=== PATIENT | female | born 2000 | race Caucasian/White ===

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

== ENCOUNTER 2018-09-19 17:38 | Emergency (ER) | payer MEDICAID ==
--- NOTE | 2018-09-19 18:17 | EDPHY ---
General Time Seen by Provider: 09/19/18 18:16 Narrative: CLINICAL IMPRESSION: Insect bites, cellulitis ASSESSMENT/PLAN: Patient is a 18-year-old female with a significant history of asthma who presents to the ED with a insect bites that have been present and escalating since September 07. The patient is well-appearing, she is in no acute distress. Physical examination reveals multiple insect bites on forearms and lower extremities, right knee with associated cellulitis. History of physical examination is consistent with insect bites and cellulitis. There were no clinical findings to suggest SJS/TENS, varicella virus, abscess , necrotizing skin infection, deep space infection, lymphangitis, septic joint or DVT. The patient was given Benadryl in the emergency department which she will continue as needed for itching. I also recommended cortisone cream for the other sites that are bothering her, she will continue Keflex for the next 7 days. She is well established with PCP and will call tomorrow for repeat examination. Strict return precautions discussed- patient is to return to the emergency department should for worsening rash, oral swelling, oral lesions, difficulty breathing, skin sloughing, lethargy, altered mentation or for any other concerning symptom. Patient verbalizes understanding and she is in agreement with this plan. DIFFERENTIAL DX: Differential diagnosis including but not limited to and in no particular order anaphylaxis, urticaria, SJS/TENS, varicella, insect bites, cellulitis, necrotizing skin infection, abscess, deep space infection ED COURSE: 2: Discussed case with Dr. Lopez. CHIEF COMPLAINT: Insect bites, right knee redness and swelling HPI: Patient is a 18-year-old female with a history of asthma who presents to the emergency department with insect bites and right knee redness and swelling. Patient reports on September 07 she spent the night at her boyfriend's house for the 1st time in noticed 3 insect bites on her right forearm. She has spent the night 3 additional times and each time she spends the night there she has walked away with additional insect bites. She describes them as clear filled bumps that scab within a short period of time, they are very pruritic in nature. No one else in the household has similar bites. No history of similar episodes in the past. She denies any new soaps, detergents or other new products. She has not tried taking anything her for the itching. Patient reports yesterday she noted a bug bite on her right knee, it has become increasingly more red which is unusual as well as painful. She denies any fevers or chills. She denies any other areas of redness. PMH: Asthma Pertinent Past Surgical History: Denies Family History: Noncontributory Social History: Denies illicit drug use or smoking REVIEW OF SYSTEMS: All other systems negative Constitutional: No fever, no chills, appetite change. Eyes: No discharge, vision change ENT: No sore throat, congestion, ear pain. Cardiovascular: No chest pain, no palpitations. Respiratory: No cough, no shortness of breath. Gastrointestinal: No abdominal pain, no vomiting, diarrhea. Genitourinary: No hematuria, dysuria, flank pain, pelvic pain Musculoskeletal: No back pain, joint swelling, joint pain, myalgias. Skin: Rash/insect bites. Neurological: No headache, dizziness, weakness. PHYSICAL EXAM: General Appearance: Well-appearing and in no acute distress. HENT: Normocephalic, atraumatic. Bilateral external ears are normal. Bilateral tympanic membranes are normal with pearly summers reflex. Nares are clear, mucosa is pink. Oropharynx is clear, uvula is midline. There is no tonsillar enlargement or exudate. The dentition is normal. Eyes: PERRLA, no acute vision change, nystagmus, swelling, discharge, pain or photosensitivity. Conjunctiva pink, no pallor or injection. Neck: Supple, nontender, no lymphadenopathy, no midline pain, FROM, no meningismus. Respiratory: There are no retractions, lungs are clear to auscultation. Cardiac: Regular rate and rhythm, no murmurs or gallops. Gastrointestinal: Abdomen is soft, nontender, bowel sounds normal, no masses/ hernia, no rigidity, guarding or focal peritoneal findings. Neurological: Alert and oriented x 3, CN 2-12 grossly intact, normal gait no ataxia, DTR's intact, normal sensation and strength Skin: Patient has multiple small scabs consistent with reported insect bites on her bilateral forearms. Patient with scratch bingham on her left buttock with residual insect bite no surrounding erythema or induration. Bilateral lower extremities with multiple small bites with faint surrounding hyperemia. The right knee has a bite on the lateral aspect with surrounding erythema overlying the entire anterior knee. Upper Extremities: Intact distal pulses, Full range of motion intact, no tenderness, no ecchymosis or edema Lower Extremities: Right knee has erythema noted around insect bite. She has no pain with passive or active range of motion of the knee. She is mildly tender where she is erythematous at site of the bite. Intact distal pulses, No edema, No tenderness, No cyanosis, full range of motion intact, No calf tenderness bilaterally. Psychiatric: Patient is oriented X 3, there is no agitation. MEDICAL DECISION MAKING: Patient was seen independently. Secondary supervising physician at time of evaluation was Dr. Lopez, she did not evaluate this patient. Diagnosis: Insect bites, cellulitis. New, requires workup Summary: See Assessment and Plan for summary of ED visit Clinical lab tests: Not applicable. Independent visualization of images, tracing, or specimens: Not applicable. Decision to obtain medical records or history from someone other than the patient: No Review / Summarize previous medical records: Yes Discussed patient with another provider: Yes, Dr. Lopez. Patient Progress: Stable, discharged. - History Smoking Status: Never smoked - Objective Vital Signs: Initial Vital Signs Temperature (C) 37.3 C 09/19/18 17:52 Heart Rate 81 09/19/18 17:52 Respiratory Rate 16 09/19/18 17:52 Blood Pressure 117/81 H 09/19/18 17:52 O2 Sat (%) 97 09/19/18 17:52 O2 Delivery Mode Room Air Allergies/Adverse Reactions: eggs Allergy (Uncoded 09/19/18 17:51) Home Medications: Medication Instructions Recorded Albuterol [Proventil Neb] 10/07/14 Cephalexin [Keflex (*)] 500 mg PO Q6H #28 cap 09/19/18 Departure - Departure Disposition: Home, Routine, Self-Care Clinical Impression: Insect bites Qualifiers: Encounter type: initial encounter Site of insect bite: unspecified site Qualified Code(s): W57.XXXA - Bitten or stung by nonvenomous insect and other nonvenomous arthropods, initial encounter Cellulitis Qualifiers: Site of cellulitis: extremity Site of cellulitis of extremity: lower extremity Laterality: right Qualified Code(s): L03.115 - Cellulitis of right lower limb Condition: Good Instructions: Cellulitis (ED) Additional Instructions: DISCHARGE INSTRUCTIONS FROM YOUR DOCTOR Thank you for visiting our emergency department today. Please keep in mind that discharge from the emergency department does not mean that there is nothing wrong - it simply means that we have not identified an emergency condition that requires further evaluation or treatment in the hospital. You should always plan to follow up with primary care for re-evaluation of your condition in the next 1-2 days. Please avoid spending the night where there are known allergens or insects. I would also consider cool Aveeno bath for the itching. You may purchase [id number] cortisone cream to apply to the areas that are itching. Do not apply this to her right knee until the redness is gone, you are being treated for associated cellulitis here. Benadryl 25 mg every 4-6 hours as needed for breakthrough itching, hives and/or swelling. Return for worsening redness, worsening or uncontrolled pain, increased rash, development of fever, for severe headache, neck stiffness, or for any other new , worsening, or worrisome symptoms. People present with illnesses and injuries in different ways, and it is always possible that we have missed something. You may always return for re-evaluation if symptoms worsen or if they are not improving or if you develop new/different symptoms. Again, thank you for choosing our emergency department. We hope that you feel better. Referrals: Kelsi Melendrez PA [Primary Care Provider] - 1-2 days without fail Prescriptions: Cephalexin [Keflex (*)] 500 mg PO Q6H #28 cap
[2018-09-19] MEDS ORDERED: diphenhydrAMINE 25 MG CAP PO ONE (18:31)
[2018-09-19] MEDS ORDERED: CEPHALEXIN 500 MG CAP PO ONE (18:46)
[2018-09-19 19:02] VITALS: BP 112/69
== END 2018-09-19 19:00 | disposition home or self-care (01) ==
DX: S50.861A Insect bite (nonvenomous) of right forearm, initial encounter (principal); S80.261A Insect bite (nonvenomous), right knee, initial encounter; L03.115 Cellulitis of right lower limb; W57.XXXA Bitten or stung by nonvenomous insect and other nonvenomous arthropods, initial encounter; Y92.009 Unspecified place in unspecified non-institutional (private) residence as the place of occurrence of the external cause; Y99.9 Unspecified external cause status; Y93.9 Activity, unspecified

== ENCOUNTER 2018-09-26 11:25 | Inpatient (IN) | payer MEDICAID ==
[2018-09-26] MEDS ORDERED: NS 1,000 ML IV ONE ×2 (11:42→15:01)
--- NOTE | 2018-09-26 11:42 | EDPHY ---
HPI/HX/ROS/PE/MDM Narrative: CHIEF COMPLAINT: Sore throat, rash HPI: This patient is a 18 y/o female with no significant past medical history. She was evaluated one week ago for a scattered pruritic fluid-filled vesicle rash which was diagnosed as possible insect bites and treated with Benadryl. Now, her rash has worsened, primarily over her face and arms. Additionally she complains of a painful, swollen sore throat and feels her entire neck is very tender to touch. She has had difficulty swallowing her saliva today due to discomfort. She notes that she has had "skin eruptions" in the past that were diagnosed as shingles, but this was contained to her right arm. She notes this only occurs when she visits her boyfriend's house, but no one else in the house has similar symptoms. She does have history of multiple environmental allergies. She has received all regular vaccinations. No recent international travel. No vomiting or diarrhea. She has had contact with dogs, cats, birds, no wild animals. REVIEW OF SYSTEMS: A comprehensive 10 system review of systems is otherwise negative aside from elements mentioned in the history of present illness and medical decision making. PMH: Denies SOCIAL HISTORY: Mother at bedside. Lives in [place]. Not currently employed. PHYSICAL EXAM: General:Patient is alert, in no acute distress. ENT:Eyes are normal to inspection. ENT inspection normal. Neck: Normal inspection. Full range of motion. Respiratory:No respiratory distress. Breath sounds normal bilaterally. Cardiovascular: Regular rate and rhythm. Strong peripheral pulses. Normal cap refill. Abdomen:The abdomen is nontender to palpation. There are no peritoneal signs. There are normal bowel sounds. Back: Normal to inspection. No tenderness to palpation. Skin: Scattered fluid-filled vesicles on erythematous base, primarily over face and upper extremities. Normal color. Warm and dry. Extremities: Normal appearance. Full range of motion. Neuro: Oriented x3. Normal motor function. Normal sensory function. ED Course: This patient is a 18 y/o female with no significant past medical history, fully immunized, with no recent travel who presents with a diffuse pruritic fluid- filled vesicle rash across her face and upper extremities as well as a severe sore throat. She is febrile at 38 degrees. Plan for labs including CBC, chemistries, BHCG, UA, flu swab. Plan to consult with infectious disease. WBC elevated at 25,000. Rapid strep swab negative. Labs otherwise largely unremarkable. 12:[address] Laguerre, infectious disease specialist. He will evaluate the patient here in the emergency department. Plan to order additional laboratory studies including blood cultures. 13:[address] Laguerre. He recommends admission for this patient for symptom management and further evaluation. He will order several additional tests to complete during her admission. 14:05 Spoke with hospitalist service. Dr. Ribera accepts admission for rash, fever. - Data Points Imaging Results: Imaging Impressions Chest X-Ray 09/26/18 12:34 Impression: Normal. Laboratory Results: Laboratory Results 09/26/18 12:00 09/26/18 12:00 09/26/18 09/26/18 09/26/18 12:00 12:00 12:00 WBC RBC Hgb Hct MCV MCH MCHC RDW Plt Count MPV Neut % (Auto) Lymph % (Auto) [place] % (Auto) Eos % (Auto) Baso % (Auto) Nucleat RBC Rel Count Absolute Neuts (auto) Absolute Lymphs (auto) Absolute Monos (auto) Absolute Eos (auto) Absolute Basos (auto) Absolute Nucleated RBC Immature Gran % Immature Gran # RBC/WBC/PLT Morphology Platelet Estimate Sodium Potassium Chloride Carbon Dioxide Anion Gap BUN Creatinine Estimated GFR Glucose Calcium Ferritin Pending C-Reactive Protein Pending Beta HCG, Qual Urine Color Urine Appearance Urine pH Ur Specific [place] Urine Protein Urine Ketones Urine Blood Urine Nitrate Urine Bilirubin Urine Urobilinogen Ur Leukocyte Esterase Urine Glucose EMMA Screen Pending EBV Capsid Ag IgG Ab Pending EBV Capsid Ag IgM Ab Pending EBV Nuclear Antigen Ab Pending EBV Interpretation Pending Monoscreen Pending Group A Strep Screen 09/26/18 09/26/18 09/26/18 12:00 12:00 12:00 WBC 24.58 10^3/uL H 10^3/uL (3.80-9.50) RBC 5.39 10^6/uL H 10^6/uL (4.18-5.33) Hgb 15.3 g/dL g/dL (12.6-16.3) Hct 47.2 % H % (38.0-47.0) MCV 87.6 fL fL (81.5-99.8) MCH 28.4 pg pg (27.9-34.1) MCHC 32.4 g/dL g/dL (32.4-36.7) RDW 13.5 % % (11.5-15.2) Plt Count 400 10^3/uL 10^3/uL (150-400) MPV 9.0 fL fL (8.7-11.7) Neut % (Auto) 82.2 % H % (39.3-74.2) Lymph % (Auto) 9.4 % L % (15.0-45.0) [place] % (Auto) 6.4 % % (4.5-13.0) Eos % (Auto) 1.2 % % (0.6-7.6) Baso % (Auto) 0.2 % L % (0.3-1.7) Nucleat RBC Rel Count 0.0 % % (0.0-0.2) Absolute Neuts (auto) 20.20 10^3/uL H 10^3/uL (1.70-6.50) Absolute Lymphs (auto) 2.31 10^3/uL 10^3/uL (1.00-3.00) Absolute Monos (auto) 1.57 10^3/uL H 10^3/uL (0.30-0.80) Absolute Eos (auto) 0.29 10^3/uL 10^3/uL (0.03-0.40) Absolute Basos (auto) 0.05 10^3/uL 10^3/uL (0.02-0.10) Absolute Nucleated RBC 0.00 10^3/uL 10^3/uL (0-0.01) Immature Gran % 0.6 % % (0.0-1.1) Immature Gran # 0.15 10^3/uL H 10^3/uL (0.00-0.10) RBC/WBC/PLT Morphology TNP Platelet Estimate TNP Sodium 139 mEq/L mEq/L (135-145) Potassium 4.3 mEq/L mEq/L (3.5-5.2) Chloride 102 mEq/L mEq/L (97-110) Carbon Dioxide 21 mEq/l L mEq/l (22-31) Anion Gap 16 mEq/L H mEq/L (6-14) BUN 8 mg/dL mg/dL (7-23) Creatinine 0.6 mg/dL mg/dL (0.6-1.0) Estimated GFR > 60 Glucose 94 mg/dL mg/dL (70-100) Calcium 10.2 mg/dL mg/dL (8.5-10.4) Ferritin C-Reactive Protein Beta HCG, Qual NEGATIVE Urine Color Urine Appearance Urine pH Ur Specific [place] Urine Protein Urine Ketones Urine Blood Urine Nitrate Urine Bilirubin Urine Urobilinogen Ur Leukocyte Esterase Urine Glucose EMMA Screen EBV Capsid Ag IgG Ab EBV Capsid Ag IgM Ab EBV Nuclear Antigen Ab EBV Interpretation Monoscreen Group A Strep Screen 09/26/18 09/26/18 11:45 11:42 WBC RBC Hgb Hct MCV MCH MCHC RDW Plt Count MPV Neut % (Auto) Lymph % (Auto) [place] % (Auto) Eos % (Auto) Baso % (Auto) Nucleat RBC Rel Count Absolute Neuts (auto) Absolute Lymphs (auto) Absolute Monos (auto) Absolute Eos (auto) Absolute Basos (auto) Absolute Nucleated RBC Immature Gran % Immature Gran # RBC/WBC/PLT Morphology Platelet Estimate Sodium Potassium Chloride Carbon Dioxide Anion Gap BUN Creatinine Estimated GFR Glucose Calcium Ferritin C-Reactive Protein Beta HCG, Qual Urine Color Pending Urine Appearance Pending Urine pH Pending Ur Specific [place] Pending Urine Protein Pending Urine Ketones Pending Urine Blood Pending Urine Nitrate Pending Urine Bilirubin Pending Urine Urobilinogen Pending Ur Leukocyte Esterase Pending Urine Glucose Pending EMMA Screen EBV Capsid Ag IgG Ab EBV Capsid Ag IgM Ab EBV Nuclear Antigen Ab EBV Interpretation Monoscreen Group A Strep Screen NEGATIVE (NEGATIVE) Medications Given: Discontinued Medications Sodium Chloride (Ns) 1,000 mls @ 0 mls/hr IV EDNOW ONE; Wide Open PRN Reason: Protocol Stop: 09/26/18 11:43 Last Admin: 09/26/18 12:00 Dose: 1,000 mls General Time Seen by Provider: 09/26/18 11:35 Initial Vital Signs: Initial Vital Signs Temperature (C) 38 C 09/26/18 11:30 Heart Rate 115 H 09/26/18 11:30 Respiratory Rate 16 09/26/18 11:30 Blood Pressure 101/62 09/26/18 11:30 O2 Sat (%) 99 09/26/18 11:30 O2 Delivery Mode Room Air Allergies/Adverse Reactions: eggs Allergy (Uncoded 09/26/18 11:30) Home Medications: Medication Instructions Recorded Cephalexin [Keflex (*)] 500 mg PO Q6H #28 cap 09/19/18 Albuterol [Proventil Inhaler HFA 1 - 2 puffs IH Q4H PRN 09/26/18 (*)] diphenhydrAMINE [Benadryl 25 MG 25 mg PO HS PRN 09/26/18 (*)] Departure - Departure Disposition: [facility] Inpatient Acute Clinical Impression: Rash Fever Qualifiers: Fever type: unspecified Qualified Code(s): R50.9 - Fever, unspecified Condition: Fair Report Scribed for: Federico Napier Report Scribed by: Neeta Coleman Date of Report: 09/26/18 Time of Report: 11:45 Physician Review and Approval Statement: Portions of this note were transcribed by an ED scribe. I personally performed the history, physical exam, and medical decision making; and confirm the accuracy of the information in the transcribed note.
[2018-09-26 12:22] LABS: PLATELET COUNT 400 10^3/uL (150-400)
[2018-09-26] MEDS ORDERED: ACETAMINOPHEN 325 MG TAB PO ONE (14:23)
[2018-09-26] MEDS ORDERED: ONDANSETRON 4 MG/2 ML VIAL IVP PRN (15:01)
[2018-09-26] MEDS ORDERED: ZOLPIDEM TARTRATE 5 MG TAB PO PRN (15:01)
--- NOTE | 2018-09-26 15:09 | PDGENHP ---
History and Physical History and Physical: CC: Fever and rash HISTORY: This patient comes to the ER complaining of fever, fatigue, and a rash that she calls spider bites. Notably she was seen here 7 days ago with a complaint of itchy spider bites and a reddened area over her knee. At that time she had a very minimal number of small vesicular skin sores that were pruritic and she was scratching them. She had apparently developed a mild cellulitis over the right knee and she was treated with Keflex and discharged from the ER. She comes back now saying that the number of these vesicular skin sores is increased in spread other areas of the body and she has developed fever for the past 48 hr with rigors. The onset of the skin lesions was approximately 2 weeks ago. She felt like she was getting spider bites at her boyfriend's house though no one who lives at that house are getting any similar skin lesions with 4 people living there. In addition to the skin lesions and the fevers, she mentions a mild pleuritic chest discomfort and myalgias primarily in her mid to low back and in her thighs. She does mention having painful adenopathy around the throat area making it difficult to swallow. Notably she states that she has had at least 3 times over the past couple years or so a somewhat similar illness involving vesicular skin lesions and fever. Those episodes did also involved oral and pharyngeal ulcerations which she has not noticed so far during this illness. Tests done during prior episodes include 2-tests for syphilis, a positive IgG but negative IgM testing for HSV, and a negative PCR for varicella zoster DNA. She has mild diffuse joint aches without swelling or change in mobility. She mentions mild nausea but has had no vomiting, no change in bowel function, but does have some decreased intake of food and fluids largely because of the soreness of lymphadenopathy she notices around her neck. She denies eye involvement, ear involvement, sneezing congestion cough dyspnea or other respiratory symptoms, urinary symptoms, or bleeding or bruising. ROS: A comprehensive 10 system review revealed no other significant findings PAST MEDICAL HISTORY: Other than the above she has been very healthy Asperger's Bipolar with depression PTSD Exercise-induced asthma Seasonal allergies HSV 1 ADD FAMILY MEDICAL HISTORY: She is adopted. The only medical history she is aware of in family is that her mother of some type of cardiac episode at a very young age. SOCIAL HISTORY: She is here with her adoptive mother who is very supportive. They live together in [place]. She has a boyfriend. No tobacco MEDICATIONS: The patients list has been reconciled by our clinical pharmacist in the EMR. I have reviewed the list and ordered appropriate medicines. PHYSICAL EXAMINATION: Vital Signs: Initial heart rate 117 now down to 95 after 1 L normal saline. Temperature 38 degrees otherwise stable respirations and blood pressure Examination: General: alert, oriented, good mentation, appears tired and uncomfortable Skin: warm, dry, good color; scattered on the face, back, upper extremities and buttock as well as the legs below the knees are a very modest number of small micro vesicular skin lesions, individual and widely spaced, with minimal surrounding erythema. The highest concentration of these is on the back of each shoulder where they are still few in number but slightly more clustered. In addition there a few patches of erythema on the skin of the abdomen the largest approximately 1.5 x 3 cm with no blistering or other significant features. The skin lesions are not noted on palms or soles HEENT: Mild diffuse pharyngeal erythema without ulcerations plaque or exudate, otherwise unremarkable HEENT exam Neck: There is tenderness along the anterior neck bilaterally with mildly enlarged adenopathy Resps: relaxed Lungs: clear breath sounds Heart: regular, no murmur Abdomen: soft, nondistended, nontender, +BS, no mass Joints: No swelling redness tenderness or decreased range of motion No Bleeding or bruising, no petechiae Neurologic: normal speech/language, normal jewel setter, no focal weakness IV site: looks normal LABORATORY DATA: White blood cell count elevated 24,000 with predominance in neutrophils. Her hemoglobin is slightly high at 47 There is an anion gap metabolic acidosis with a gap of 16 but CO2 is at 21 RADIOLOGY STUDIES: I reviewed images from a chest x-ray done in the ER today, shows some hyperexpansion of lung walters but otherwise normal 12 LEAD EKG: I have ordered in this pending ASSESSMENT: * Febrile illness with rash and myalgias, pleuritic chest discomfort * Tachycardia and Metabolic Acidosis, suggesting possible sepsis vs dehydration * Asthma, chronic and stable This skin illness involved is somewhat nonspecific with diffuse involvement but minimal very small lesions by number. Overall the differential diagnosis could include viral illness, autoimmune illness, or other. The fact that she has had at least 3 prior episodes of a similar illness raises the Specter of some type of recurring immune or other cause aside from infection. At the moment the main difference between this episode and her previous episodes as lack of any oral pharyngeal involvement with ulcerations during this episode so far. So far she has tested negative for acute varicella, HSV, and syphilis during previous episodes. She does have a positive IgG for HSV. PLANS: * observe overnight in hospital * if does vehicle return associate to have sepsis or unstable for any other reason, may need to change to inpatient * further stat IV fluid bolus now * recheck acid/base, lactate after fluid bolus * pending tests from ER and Dr Laguerre include: -crp -EBV panel -EMMA -ferritin -blood cultures -UA -influenza panel -HSV/varicella zoster tests * I have added: -HIV -resp pathogen panel -CPK -liver panel -ekg to check for pericarditis * further diagnositic/tx measures depending on progress and results I have reviewed the patient's case in detail with Dr. Federico Napier I have reviewed the patient's past medical records as part of this assessment, including previous hospital admission records and outpatient clinical record
[2018-09-26] MEDS: NS 1,000 ML IV SCH ×2 (15:38→22:53)
[2018-09-26] MEDS ORDERED: ALBUTEROL 60 PUFFS/8 GM MDI IH PRN (15:39)
[2018-09-26] MEDS ORDERED: diphenhydrAMINE 25 MG CAP PO PRN (15:39)
[2018-09-26 16:16] LABS: CREATINE KINASE 69 IU/L (0-156)
[2018-09-26 17:17] LABS: HIV TYPE 1 AND 2 NEGATIVE (NEGATIVE)
[2018-09-26] MEDS: MELATONIN 3 MG TAB PO SCH (22:48)
[2018-09-26] MEDS: CEPACOL LOZENGE PO PRN (22:49)
[2018-09-26] MEDS: ACETAMINOPHEN 325 MG TAB PO PRN (22:53)
--- NOTE | 2018-09-27 05:42 | GCON ---
[f rep st] CONSULTATION INFECTIOUS DISEASE CONSULTATION DATE OF CONSULTATION: 09/26/2018 REFERRING PHYSICIAN: Federico Napier MD REASON FOR CONSULTATION: Fever and rash. HISTORY OF PRESENT ILLNESS: Patient is a 18-year-old female with a past medical history of recurrent rash over the last 2 years of unclear etiology, who I am asked to see in consultation for fever, miguel ángel kocytosis and rash. The patient describes developing recurrent rash approximately 2 years ago. This initially was vesicular in nature over the right upper arm and felt to be secondary to shingles. Th e patient more recently has developed a rash affecting the face, upper extremities, and posterior miguelito ulders which she has described as being painful and appearance consistent with small blisters. She s ubsequently developed a sore throat and tender cervical lymphadenopathy. She was seen in the emergen cy department on 09/19/2018, for evaluation of her rash which she notes had begun after she had visit ed her boyfriend's house. This was felt to be most compatible with insect bites with consideration o f right knee cellulitis, prompting treatment with cephalexin. She also had her wisdom teeth extracte d approximately 3 weeks ago and had received amoxicillin post extraction. A fever has now developed accompanying her sore throat and adenopathy. She has developed concomitant rigors, myalgias and arth ralgias. Her sore throat has made it difficult to swallow and limited her oral intake. She has not had excessive drooling. She has experienced mild nausea without vomiting or diarrhea. There is no s ignificant cough or shortness of breath. She does not have any dysuria, urgency, frequency, or hemat uria. She does have accompanying headaches without any change in visual perception. Assessment in 2 017 for VZV by PCR testing was negative; patient had positive HSV 1 antibodies. EMMA screening in 201 8 was also negative. Earlier today, the patient had PCR influenza testing which was also negative. The patient does not note any significant recent travel. She does have exposure to cats and dogs. N o bites or scratches. The patient has felt ill enough that she has not wanted to get out of bed with her current presentation. Evaluation in the emergency department included laboratory testing which revealed a white blood cell count of 24.5 with left shift. Given the above findings, I am now asked to assist in her ongoing management. PAST MEDICAL HISTORY: Rash as outlined above, environmental allergies, bipolar disorder, PTSD, asthm a. PAST SURGICAL HISTORY: Dental extraction of wisdom teeth as outlined above. CURRENT MEDICATIONS: Albuterol inhaler as needed, melatonin 3 mg p.o. at bedtime, recent course of c ephalexin which has now been discontinued. ALLERGIES: No known drug allergies. SOCIAL HISTORY: Patient does not smoke or drink alcohol. No recent travel. FAMILY HISTORY: Mother with cardiac malformation and asthma. REVIEW OF SYSTEMS: Outside that noted in the HPI, the remainder of a 10-system review is unremarkabl e. PHYSICAL EXAMINATION: VITAL SIGNS: Temperature 38, heart rate 107, blood pressure 102/64, respirato ry rate 16, oxygen saturation 97% on room air. GENERAL: Patient is fatigued in appearance but appea rs nontoxic. HEENT: There is no scleral icterus, conjunctival injection, or conjunctival petechiae. Oropharynx shows minimal tonsillar hypertrophy. No exudates noted. There is no sinus tenderness o r nasal discharge. NECK: There is diffuse, tender, palpable anterior cervical and submandibular cr nopathy bilaterally. There is no palpable thyromegaly. There is no stridor present. CHEST: Clear to auscultation bilaterally without adventitious sounds. The respiratory effort is normal. CARDIOVA SCULAR: Tachycardic, without murmurs, gallops, or rubs. ABDOMEN: Soft, nontender, nondistended. T here is no palpable organomegaly. Bowel sounds are present. MUSCULOSKELETAL: No cyanosis, clubbing , or edema. Joints appear normal. SKIN: There are very small vesicular pustular lesions scattered over the face, trunk, upper extremities and posterior shoulders. These do have a slightly erythemato us base. No stigmata of endocarditis. SKIN: Warm and dry to touch. NEUROLOGIC: Patient is alert and interacts appropriately with examiner. Cranial nerves 2-12 are grossly intact. Sensation is vonda ssly intact. Muscle tone and bulk are normal. LYMPHATICS: Anterior and submandibular tender adenop athy bilaterally, no supraclavicular nodes palpable. LABORATORY DATA: White blood cell count 24.5, hematocrit 47.2, platelets 400, neutrophils 82%. Seru m creatinine is 0.6, bicarb 21. Beta HCG is negative. Group a strep DNA is pending. Influenza PCR is negative. Chest x-ray shows no focal infiltrate. IMPRESSION: Fever, leukocytosis and rash: Diagnostic considerations would include viral syndrome wi th other consideration being autoimmune disease based on recurring nature of her rash. The appearanc e of the rash is vesicular pustular with VZV being a consideration although patient reports having ch ickenpox as a child. Lesions will be swabbed to assess for VZV and HSV by PCR. Given the prominent leukocytosis, EBV would be of consideration as this can present in this fashion. A bacterial process is also in differential diagnosis given the patient's prominent leukocytosis with consideration such as fusobacterium being present in this age group in the setting of sore throat and lymphadenopathy. However, these patients typically have a toxic appearance. Serologic evaluation will include screen ing for autoimmune disease with EMMA. RECOMMENDATIONS: 1. Blood cultures x2 sets. 2. VZV/HSV PCR sent from skin lesions (performed by me during ED evaluation). 3. Will check EMMA and ferritin. 4. Check C-reactive protein and lactic acid. 5. Agree with plans for respiratory pathogen panel by PCR testing (will assess for additional viral etiologies such as adenovirus). 6. Observe off antibiotic therapy unless dictated otherwise by blood cultures. 7. The patient may ultimately require skin biopsy for further evaluation. Thank you for this consultation. We will continue to follow the patient with you. /[id number]/MODL
[2018-09-27] MEDS: NS 1,000 ML IV SCH ×2 (06:51→15:33)
[2018-09-27 08:45] LABS: PLATELET COUNT 269 10^3/uL (150-400)
[2018-09-27] MEDS ORDERED: BENZOCAINE UNIT DOSE SPRAY HURRICAINE MM PRN (09:01)
[2018-09-27] MEDS: ACETAMINOPHEN 325 MG TAB PO PRN (09:02)
--- NOTE | 2018-09-27 13:14 | HOSPPROG ---
Hospitalist Progress Note Assessment/Plan: #Sepsis: leukocytosis, tachy, +Rhinovirus -neg monospot, +EBG IgG c/w prior infection -no indication for abx #Vesicular rash: negative HSV, VZV, HIV -EMMA pending #Tachycardia: fever/dehydration. IVFs #Rhino-enterovirus: supportive care #Diet: as tolerated #Disp: inpatient admission for IVFs, antiemetics Subjective: sore throat persists Objective: Vital Signs Temp Pulse Resp BP Pulse Ox 36.8 C 97 16 113/64 96 09/27/18 11:27 09/27/18 11:27 09/27/18 11:27 09/27/18 11:27 09/27/18 11:27 Microbiology 09/26/18 16:00 Respiratory Panel (PCR) - Final Nasal, Sinus - Swab Human Rhinovirus/Enterovirus 09/26/18 14:24 Herpes Simplex Virus I (PCR) - Final Dermal - Face Hsv-1 Dna Not Detected Herpes Simplex Virus II (PCR) - Final Hsv-2 Dna Not Detected Varicella-Zoster Group DNA (PCR) - Final Vzv Dna Not Detected HSV/VZV PCR Additional Information - Final Laboratory Results 09/27/18 08:34 09/27/18 08:34 09/26/18 09/27/18 09/28/18 05:59 05:59 05:59 Intake Total 2400 1099 Output Total 2400 500 Balance 0 599 - Time Spent With Patient Time Spent with Patient: greater than 35 minutes Time Spent with Patient: Greater than 35 minutes spent on this patients care, greater than 50% of time spent counseling, educating, and coordinating care regarding the above mentioned plan. - Physical Exam Constitutional: uncomfortable, other (ill-appearing) Ears, Nose, Mouth, Throat: dry mucous membranes, other (no exudate, mild erthematous. Airway patent) Cardiovascular: tachycardia Respiratory: no respiratory distress Gastrointestinal: normoactive bowel sounds Genitourinary: no bladder fullness Skin: warm, rash (vesicle: 2 upper chest. Present on arms, face) Musculoskeletal: full muscle strength Neurologic: AAOx3, CN II-XII Intact ICD10 Worksheet Patient Problems: Problems Problem Status Onset Fever Acute Rash Acute
--- NOTE | 2018-09-27 13:37 | CPEKG ---
Test Reason : OPEN Blood Pressure : / mmHG Vent. Rate : 103 BPM Atrial Rate : 103 BPM P-R Int : 125 ms QRS Dur : 062 ms QT Int : 405 ms P-R-T Axes : 069 069 072 degrees QTc Int : 530 ms Sinus tachycardia Atrial premature complex Borderline T wave abnormalities Prolonged QT interval Confirmed by Alverto Calderon ([id number]) on 09/27/2018 1:37:17 PM Referred By: Marcell Ribera Confirmed By:Alverto Calderon
--- NOTE | 2018-09-27 15:08 | ASMTCMCOM ---
CM Note CM Note Notes: Pt with PTSD, Bipolar Disorder, Asperger's in with rash/fever, has said she thinks she may have spider bites. ID is consulting, cultures pending and pt is not on antibiotics. No therapies ordered. Pt mother bedside and pt has a boyfriend for supports. CM to follow for d/c planning. Date Signed: 09/27/2018 03:07 PM Electronically Signed By:BEENA Haney
[2018-09-27] MEDS: KETOROLAC 30 MG/1 ML SDV IVP PRN (15:31)
--- NOTE | 2018-09-27 18:23 | PCMIDPN ---
Assessment/Plan: Assessment/Plan: * Fever/leukocytosis/pharyngitis: Most likely this is of viral etiology. Respiratory pathogen PCR positive for rhinovirus/enterovirus with enterovirus being more likely etiology given severity of illness. Blood cultures remain negative and clinical course less typical for fusobacterium. Will continue observation off antibiotics with supportive care. Continue droplet precautions for rhinovirus/enterovirus. * Skin rash: HSV/VZV PCR negative. Unclear that this is related to presence of fever, leukocytosis and pharyngitis. At some point likely will benefit from ongoing dermatologic follow-up and skin biopsy to fully define etiology. Await EMMA. 09/27/18 18:19 09/27/18 18:23 Subjective: Patient complains of sore throat and painful anterior lymphadenopathy. No interval change in rash. Objective: Vital Signs Temp Pulse Resp BP Pulse Ox 37.0 C 98 18 117/84 H 98 09/27/18 15:15 09/27/18 15:15 09/27/18 15:15 09/27/18 15:15 09/27/18 15:15 Microbiology 09/26/18 16:00 Respiratory Panel (PCR) - Final Nasal, Sinus - Swab Human Rhinovirus/Enterovirus 09/26/18 14:24 Herpes Simplex Virus I (PCR) - Final Dermal - Face Hsv-1 Dna Not Detected Herpes Simplex Virus II (PCR) - Final Hsv-2 Dna Not Detected Varicella-Zoster Group DNA (PCR) - Final Vzv Dna Not Detected HSV/VZV PCR Additional Information - Final Laboratory Results 09/27/18 08:34 09/27/18 08:34 09/26/18 09/27/18 09/28/18 05:59 05:59 05:59 Intake Total 2400 1699 Output Total 2400 500 Balance 0 1199 C-Reactive Protein 9.2 mg/L (<10.0) 09/26/18 12:00 No antibiotic therapy Respiratory pathogen panel positive by PCR testing for rhinovirus/enterovirus Skin swab negative for HSV/VZV by PCR Blood cultures x2 no growth Laboratory Tests 09/26/18 09/26/18 09/26/18 12:00 12:00 12:00 EBV Capsid Ag IgG Ab Positive EBV Capsid Ag IgM Ab Negative EBV Nuclear Antigen Ab Positive Monoscreen NEGATIVE HIV 1&2 Antibody NEGATIVE Group A Strep DNA 09/26/18 Unknown EBV Capsid Ag IgG Ab EBV Capsid Ag IgM Ab EBV Nuclear Antigen Ab Monoscreen HIV 1&2 Antibody Group A Strep DNA NEGATIVE - Physical Exam General Appearance: alert, no apparent distress, non-toxic EENT: other (Bilateral tonsillar hypertrophy with scant exudate on left), No scleral icterus, No thrush, No conjunctival petechiae Respiratory: lungs clear, No respiratory distress Neck: supple, other (Tender bilateral cervical lymphadenopathy and submandibular adenopathy), No meningismus Cardiac/Chest: regular rate, rhythm, systolic murmur (2/6 throughout) Extremities: No inflammation Abdomen: non-tender, No distended Skin: rash (No interval change in vesicular pustular rash) Neuro/Psych: No confused ICD10 Worksheet Patient Problems: Problems Problem Status Onset Fever Acute Rash Acute
--- NOTE | 2018-09-27 19:50 | PDMN ---
Medical Necessity Medical necessity: Change to IP, as of 09/27/18, per MD & MCG M-160; los >2 mn for ongoing management of sepsis w/tachycardia, leukocytosis, pharyngitis & skin rash; requiring further monitoring, droplet precautions & aggressive IVFs ( 150 mls/hr)
[2018-09-27] MEDS: MELATONIN 3 MG TAB PO SCH (21:26)
[2018-09-28] MEDS: KETOROLAC 30 MG/1 ML SDV IVP PRN ×2 (04:14→10:19)
[2018-09-28 08:00] VITALS: BP 92/53
[2018-09-28] MEDS: CEPACOL LOZENGE PO PRN (08:31)
[2018-09-28] MEDS: NS 1,000 ML IV SCH (09:24)
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
--- NOTE | 2018-09-28 19:13 | GDS ---
[f rep st] DISCHARGE SUMMARY DISCHARGE DIAGNOSES: 1. Sepsis. 2. Rhinovirus/enteritis. 3. Pharyngitis. 4. Skin rash. 5. Tachycardia. HISTORY OF PRESENT ILLNESS: A pleasant 18-year-old female presenting with fatigue, rash, and fever. She presented here 7 days prior with complaint of itchy spider bites and a reddened area over her knee. At that time, she had a small number of vesicular skin sores that were pruritic. She had developed a mild cellulitis over the knee and was treated with Keflex and discharged from the ER. She says the number of vesicles have increased and spread to her arms, and has developed a fever. She states she has had similar lesions at least 3 times over the past couple years. These also involved oral and pharyngeal ulcerations. Tests done prior to this episode include 2 tests for syphilis, positive IgG but negative IgM test for HSV, and a negative PCR for varicella. HOSPITAL COURSE BY PROBLEM: 1. Sepsis: Secondary to rhinovirus/enterovirus. Negative Monospots. Positive EBV IgG which is consistent with prior infection. There was no indication for antibiotics. 2. Fascicular rash: Negative HSV, VZV, HIV. EMAM is pending. She needs a referral to Dermatology for biopsy. 3. Tachycardia: Secondary to fever, dehydration. 4. Rhinovirus/enterovirus: Supportive care. 5. Pharyngitis: Negative strep. P.r.n. Tylenol and Advil as needed. DISPOSITION: Patient is stable for discharge home with her boyfriend. NEW MEDICATIONS: Tylenol, Advil. FOLLOWUP: 1. Her PCP, Priscila Melendrez, PAC. 2. Referral to Dermatology. PHYSICAL EXAMINATION: VITAL SIGNS: Today, temperature 36.8, blood pressure is 90/50, heart rate is in the 70s, respiration 12, oxygen saturation 96% on room air. GENERAL: She appears a little brighter today, sitting up, no acute distress. HEENT: PERRLA. Moist mucous membranes. Oropharynx: No exudates. CV: Regular rate and rhythm. LUNGS: Clear. No crackles or wheezing. ABDOMEN : Soft, nontender, nondistended, with positive bowel sounds. : Normal. MUSCULOSKELETAL: Moving all 4 extremities. SKIN: Scabbed over vesicles over her arms, a few over the chest. NEUROLOGICAL: 2 through 12 intact. PSYCHIATRIC: Alert and oriented x3. TIME SPENT ON DISCHARGE: Greater than 30 minutes at bedside, counseling patient and her boyfriend. Will discuss with her mother as well. Patient's symptoms improved earlier than expected 2MN. /[id number]/MODL MTDD
== END 2018-09-28 14:14 | disposition home or self-care (01) | DRG 720 ==
LOC: F3E 15:14 → OBSVTOIN 09-27 14:53
PROVIDERS: ADMIT Internal Medicine; ATTEND Internal Medicine
DX: A41.89 Other specified sepsis (principal); J06.9 Acute upper respiratory infection, unspecified; E86.0 Dehydration; J02.9 Acute pharyngitis, unspecified; R21 Rash and other nonspecific skin eruption; E87.6 Hypokalemia
CPT/HCPCS: 86664-90; 86665-90; 87529-90; 87798-90; G0378; J1885